=== PATIENT | female | born 1970 | race Caucasian/White ===

== ENCOUNTER 2021-03-16 12:34 | Emergency (ER) | payer SELFPAY ==
[~2021-03-16] VITALS: Ht 162.6 cm; Wt 76.2 kg
[2021-03-16 12:59] VITALS: BP 132/81
--- NOTE | 2021-03-16 13:03 | NUR ---
PT TO AWAIT IN LOBBY
--- NOTE | 2021-03-16 13:11 | NUR ---
MUNA [facility]AE EXAMINING PT
[2021-03-16] MEDS ORDERED: KETOROLAC 30 MG/ML VIAL IM ONE (13:15)
--- NOTE | 2021-03-16 13:30 | NUR ---
50/F presents to ED with c/o right sided headache that is non radiating. Patients states symptoms have been continuing since 03/04/21, stating she saw her PCP and was referred to ED for further follow up. Patient states 10/10 throbbing pain, admtis to photophobia, denies fever, chills, sob or cp. Denies any injury or trauma.
[2021-03-16] MEDS ORDERED: ACET-9500 PO (14:01)
[2021-03-16 14:17] VITALS: BP 111/66
--- NOTE | 2021-03-16 14:18 | NUR ---
Patient discharged with v/s stable. Written and verbal after care instructions given and explained. Patient alert, oriented and verbalized understanding of instructions. Ambulatory with steady gait. All questions addressed prior to discharge. ID band removed. Patient advised to follow up with PMD. Rx of Excedrin Migraine Caplet given. Patient educated on indication of medication including possible reaction and side effects. Opportunity to ask questions provided and answered.
== END 2021-03-16 14:18 | disposition home or self-care (01) ==
LOC: MED 12:34
DX: G43.909 Migraine, unspecified, not intractable, without status migrainosus (principal); G51.0 Bell's palsy
CPT/HCPCS: 96372; 99283; J1885; Q0163